=== PATIENT | male | born 1950 | race Caucasian/White ===

== ENCOUNTER 2017-05-14 14:17 | Emergency (ER) | payer MEDICARE ==
[2017-05-14 14:17] VITALS: BMI 27.4
[2017-05-14 14:29] VITALS: BP 160/85; PULSE 81; RESP 16; TEMP 97.6; O2SAT 99
[2017-05-14] MEDS ORDERED: RABIES VACCINE 2.5 U PDR IM ONE (14:54)
--- NOTE | 2017-05-14 14:55 | C.PDOC ---
History Of Present Illness Patient is a 67 year old male who presents to the ER for 2nd round of rabies vaccine after he was bit by a stray cat in [facility] on 05/11. Patient received tetanus vaccine and 1st dose of rabies vaccine on 05/11 after the bite; not given any antibiotics. Denies any physical complaints at this time. Time Seen by Provider: 05/14/17 14:40 Chief Complaint (Nursing): Bite History Per: Patient History/Exam Limitations: no limitations Recent travel outside of the [place]: No Past Medical History Reviewed: Historical Data, Nursing Documentation, Vital Signs Vital Signs: Last Vital Signs Temp 97.6 F 05/14/17 14:25 Pulse 81 05/14/17 14:25 Resp 16 05/14/17 14:25 BP 160/85 H 05/14/17 14:25 Pulse Ox 99 05/14/17 15:54 - Medical History PMH: No Chronic Diseases Surgical History: No Surg Hx Family History: States: Unknown Family Hx - Social History Hx Alcohol Use: No Hx Substance Use: No - Immunization History Hx Tetanus Toxoid Vaccination: Yes (05/11/17) Review Of Systems Constitutional: Negative for: Fever, Chills Gastrointestinal: Negative for: Nausea, Vomiting, Diarrhea Physical Exam - Physical Exam Appears: Non-toxic, No Acute Distress Skin: Normal Color, Warm, Dry, Other (well healing bite ( small scabs) to dorsum left foot. no erythema, warmth or swelling) Neurological/Psych: Oriented x3, Normal Speech, Normal Cognition ED Course And Treatment O2 Sat by Pulse Oximetry: 99 (Room air) Pulse Ox Interpretation: Normal Progress Note: 2nd rabies series vaccination administered. Medical Decision Making Medical Decision Making: pt for 2nd rabies vaccine after bit by stray ct in [facility] on 05/11 Disposition - Disposition Disposition: HOME/ ROUTINE Disposition Time: 15:52 Condition: STABLE Additional Instructions: Return to ER for day 7 and 14 for rest of vaccinations. Instructions: Rabies Vaccine (ED) Forms: General Discharge Instructions - Clinical Impression Clinical Impression: Need for rabies vaccination - Scribe Statement The provider has reviewed the documentation as recorded by the Scribe Arun Donald All medical record entries made by the Scribe were at my direction and personally dictated by me. I have reviewed the chart and agree that the record accurately reflects my personal performance of the history, physical exam, medical decision making, and the department course for this patient. I have also personally directed, reviewed, and agree with the discharge instructions and disposition.
== END 2017-05-14 15:54 | disposition home or self-care (01) ==
LOC: C.ER 14:17
DX: Z23 Encounter for immunization (principal)

== ENCOUNTER 2017-05-21 10:16 | Emergency (ER) | payer MEDICARE ==
[2017-05-21 10:17] VITALS: BMI 27.4
[2017-05-21 10:30] VITALS: BP 147/74; PULSE 76; RESP 18; TEMP 98.1; O2SAT 100
[2017-05-21] MEDS ORDERED: RABIES VACCINE 2.5 U PDR IM ONE (10:34)
--- NOTE | 2017-05-21 11:07 | C.PDOC ---
History Of Present Illness Pt is here for his 3rd rabies vaccination. He states he was bitten by a stray cat in [place] on his right foot. Denies any complaints. Time Seen by Provider: 05/21/17 10:32 Chief Complaint (Nursing): Rabies Vaccine Series Past Medical History Reviewed: Historical Data, Nursing Documentation, Vital Signs Vital Signs: Last Vital Signs Temp 98.1 F 05/21/17 10:28 Pulse 76 05/21/17 10:28 Resp 18 05/21/17 10:28 BP 147/74 05/21/17 10:28 Pulse Ox 100 05/21/17 10:28 - Medical History PMH: No Chronic Diseases Family History: States: Unknown Family Hx - Social History Hx Alcohol Use: No Hx Substance Use: No - Immunization History Hx Tetanus Toxoid Vaccination: Yes (05/11/17) Review Of Systems Except As Marked, All Systems Reviewed And Found Negative. Constitutional: Negative for: Fever, Chills, Weakness Cardiovascular: Negative for: Chest Pain Respiratory: Negative for: Shortness of Breath Gastrointestinal: Negative for: Vomiting Musculoskeletal: Negative for: Neck Pain Skin: Negative for: Rash Neurological: Negative for: Weakness, Numbness, Seizures, Altered Mental Status Physical Exam - Physical Exam Appears: Non-toxic, No Acute Distress Skin: Normal Color, Warm, Dry, No Rash Head: Atraumatic, Normacephalic Eye(s): bilateral: PERRL, EOMI Neck: Normal ROM, Supple Extremity: Normal ROM, Other (No bite wound cam be seen on right foot. Pt states it healed already.) Neurological/Psych: Oriented x3, Normal Motor, Normal Sensation ED Course And Treatment O2 Sat by Pulse Oximetry: 100 Pulse Ox Interpretation: Normal Reassessment Condition: Improved Disposition Counseled Patient/Family Regarding: Diagnosis, Need For Followup - Disposition Disposition: HOME/ ROUTINE Disposition Time: 11:07 Condition: STABLE Additional Instructions: Follow up with your doctor. Return in 7 days for your 4th and final vaccination. Instructions: Rabies Vaccine (ED) - Clinical Impression Clinical Impression: Rabies vaccination
== END 2017-05-21 11:14 | disposition home or self-care (01) ==
LOC: C.ER 10:16
DX: Z23 Encounter for immunization (principal)

== ENCOUNTER 2017-05-28 10:03 | Emergency (ER) | payer MEDICARE ==
[2017-05-28 10:04] VITALS: BMI 27.4
[2017-05-28 10:08] VITALS: BP 160/70; PULSE 71; RESP 18; TEMP 97.5; O2SAT 98
[2017-05-28] MEDS ORDERED: RABIES VACCINE 2.5 U PDR IM ONE (10:09)
--- NOTE | 2017-05-28 10:22 | C.PDOC ---
History Of Present Illness 67 y/o male presents to ED for 4th rabies vaccine. Pt was initially seen after bitten by a cat in [place]. Pt denies fever, chills or any other complaints. Time Seen by Provider: 05/28/17 10:08 Chief Complaint (Nursing): Rabies Vaccine Series History Per: Patient History/Exam Limitations: no limitations Severity: None Recent travel outside of the [place]: No Past Medical History Reviewed: Historical Data, Nursing Documentation, Vital Signs Vital Signs: Last Vital Signs Temp 97.5 F L 05/28/17 10:07 Pulse 71 05/28/17 10:07 Resp 18 05/28/17 10:07 BP 160/70 H 05/28/17 10:07 Pulse Ox 98 05/28/17 10:41 Family History: States: Unknown Family Hx - Social History Hx Alcohol Use: No Hx Substance Use: No - Immunization History Hx Tetanus Toxoid Vaccination: Yes (05/11/17) Review Of Systems Except As Marked, All Systems Reviewed And Found Negative. Constitutional: Negative for: Fever, Chills Physical Exam - Physical Exam Appears: Non-toxic, No Acute Distress Skin: Warm, Dry, No Rash Head: Atraumatic, Normacephalic Cardiovascular: Rhythm Regular Respiratory: Normal Breath Sounds, No Rales, No Rhonchi, No Wheezing Gastrointestinal/Abdominal: Normal Exam, Soft, No Tenderness Extremity: Bilateral: Atraumatic Neurological/Psych: Oriented x3, Normal Speech, Normal Cognition ED Course And Treatment O2 Sat by Pulse Oximetry: 98 (room air) Pulse Ox Interpretation: Normal Disposition - Disposition Disposition: HOME/ ROUTINE Disposition Time: 11:00 Condition: STABLE Instructions: Rabies Vaccine (By injection) - Clinical Impression Clinical Impression: Need for rabies vaccination - Scribe Statement The provider has reviewed the documentation as recorded by the Martha Win Provider Attestation: All medical record entries made by the Martha were at my direction and personally dictated by me. I have reviewed the chart and agree that the record accurately reflects my personal performance of the history, physical exam, medical decision making, and the department course for this patient. I have also personally directed, reviewed, and agree with the discharge instructions and disposition.
--- NOTE | 2017-05-28 10:35 | C.PDOC ---
Time Seen by Provider: 05/28/17 10:08 Chief Complaint (Nursing): Rabies Vaccine Series Past Medical History Vital Signs: Last Vital Signs Temp 97.5 F L 05/28/17 10:07 Pulse 71 05/28/17 10:07 Resp 18 05/28/17 10:07 BP 160/70 H 05/28/17 10:07 Pulse Ox 98 05/28/17 10:07 - Medical History PMH: Denies: Chronic Kidney Disease Family History: States: Unknown Family Hx - Social History Hx Alcohol Use: No Hx Substance Use: No - Immunization History Hx Tetanus Toxoid Vaccination: Yes (05/11/17) ED Course And Treatment O2 Sat by Pulse Oximetry: 98 Disposition - Disposition Disposition: HOME/ ROUTINE Disposition Time: 10:19 Condition: STABLE Instructions: Rabies Vaccine (By injection) - Clinical Impression Clinical Impression: Need for rabies vaccination
== END 2017-05-28 10:34 | disposition home or self-care (01) ==
LOC: C.ER 10:03
DX: Z23 Encounter for immunization (principal)